=== PATIENT | female | born 1965 | race Caucasian/White ===

== ENCOUNTER 2018-06-10 17:36 | Emergency (ER) | payer OTHER ==
[2018-06-10 18:35] VITALS: BP 119/65
--- NOTE | 2018-06-10 19:49 | UC ---
Upper Extremity HPI - HPI Summary HPI Summary: 52-year-old female presents with complaints of redness, swelling and tenderness to her proximal nail fold of the right middle finger which started last night. Reports she had a similar incident a couple of years ago that ultimately required debridement and removal of the nail. Denies known injury, fever, chills, drainage, numbness or tingling. - History of Current Complaint Chief Complaint: UCUpperExtremity Stated Complaint: RIGHT HAND MIDDLE FINGER COMPLAINT Time Seen by Provider: 06/10/18 19:44 Hx Obtained From: Patient Hx Last Menstrual Period: none Pain Intensity: 0 - Allergies/Home Medications Allergies/Adverse Reactions: Allergies Allergy/AdvReac Type Severity Reaction Status Date / Time erythromycin base AdvReac Nausea Verified 06/10/18 18:35 Home Medications: Home Medications Cyclobenzaprine TAB* [Flexeril 10 MG TAB*] 10 mg PO TID PRN 06/10/18 [History Confirmed 06/10/18] Escitalopram (NF) [Lexapro 20 mg (NF)] 1 tab DAILY 06/10/18 [History Confirmed 06/10/18] PMH/Surg Hx/FS Hx/Imm Hx Endocrine History: Dyslipidemia GI/ History: Gastroesophageal Reflux Psychological History: Depression Other History Of: Negative For: HIV, Hepatitis B, Hepatitis C, Anticoagulant Therapy - Surgical History Surgical History: Yes Surgery Procedure, Year, and Place: Left Foot Bunion, left femur fxs 2003, rods are in place. Right Foot Bunion. Bone fusion and reconstruction of the right heel - Family History Known Family History: Positive: Hypertension Negative: Cardiac Disease - Social History Occupation: Employed Part-time Lives: With Family Alcohol Use: Rare Substance Use Type: None Substance Use Comment - Amount & Last Used: 5 cups of coffee daily Smoking Status (MU): Heavy Every Day Tobacco Smoker Type: Cigarettes Amount Used/How Often: 3/4 ppd Length of Time of Smoking/Using Tobacco: ~ 30 years Review of Systems All Other Systems Reviewed And Are Negative: Yes Constitutional: Negative: Fever, Chills Skin: Positive: Other - See HPI Respiratory: Positive: Negative Cardiovascular: Positive: Negative Gastrointestinal: Positive: Negative Genitourinary: Positive: Negative Musculoskeletal: Positive: Negative Neurological: Positive: Negative Is Patient Immunocompromised?: No Physical Exam - Summary Physical Exam Summary: GENERAL APPEARANCE: Well developed, well nourished, alert and cooperative, and appears to be in no acute distress. CARDIAC: Normal S1 and S2. No S3, S4 or murmurs. Rhythm is regular. There is no peripheral edema, cyanosis or pallor. Extremities are warm and well perfused. Capillary refill is less than 2 seconds. LUNGS: Clear to auscultation without rales, rhonchi, wheezing or diminished breath sounds. ABDOMEN: Positive bowel sounds. Soft, nondistended, nontender. No guarding or rebound. No masses or hepatosplenomegally. MUSKULOSKELETAL: ROM intact to all extremities. No joint erythema or tenderness. Normal muscular development. Normal gait. NEUROLOGICAL: Strength and sensation symmetric and intact. SKIN: Erythema, tenderness, mild edema and induration without fluctuance or drainage to the proximal nail fold of the right middle finger. No joint tenderness or decrease in ROM. Triage Information Reviewed: Yes Vital Signs: Initial Vital Signs Temp 97.4 F 06/10/18 18:26 Pulse 68 06/10/18 18:26 Resp 16 06/10/18 18:26 BP 119/65 06/10/18 18:26 Pulse Ox 99 06/10/18 18:26 Vital Signs Reviewed: Yes Upper Extremity Course/Dx - Course Course Of Treatment: 52-year-old female presents with complaints of redness, swelling and tenderness to her proximal nail fold of the right middle finger which started last night. Reports she had a similar incident a couple of years ago that ultimately required debridement and removal of the nail. Denies known injury, fever, chills, drainage, numbness or tingling. Afebrile. Vital signs stable. Exam reveals erythema, tenderness, mild edema and induration without fluctuance or drainage to the proximal nail fold of the right middle finger. We 'll start patient on Bactrim DS twice a day 7 days for paronychia versus cellulitis of the finger. She is to follow-up with her primary care provider or return here within 3 days if symptoms do not improve. Also recommend that she does soaks and warm water and Epsom salt solution 2-4 times a day. Anticipatory guidance and warning symptoms were reviewed with the patient. Verbalized understanding and agrees with plan of care. - Differential Dx/Diagnosis Provider Diagnosis: Paronychia of right middle finger Discharge - Sign-Out/Discharge Documenting (check all that apply): Patient Departure All imaging exams completed and their final reports reviewed: No Studies - Discharge Plan Condition: Stable Disposition: HOME Prescriptions: Sulfamethox/Trimethoprim DS* [Bactrim DS 800/160 TAB*] 1 tab PO BID #14 tab Patient Education Materials: Paronychia (ED) Referrals: Ajay Hopkins PA [Primary Care Provider] - 3 Days (If no improvement.) Additional Instructions: Soak your finger in a warm water and Epsom salt solution 3-4 times a day. Take Bactrim DS 1 tab every twice a day for 7 days. We gave you the first dose in the clinic. Return here or with your primary care provider in 3 days if no improvement in symptoms. Seek immediate medical attention in the emergency room if you develop fever greater than 100.5 F, you have pain that is not managed with over the counter pain medication, increased redness or swelling of the finger, you have numbness or tingling in the finger, or any worsening of symptoms. - Billing Disposition and Condition Condition: STABLE Disposition: Home - Attestation Statements Provider Attestation: Per institutional requirements, I have reviewed the chart, however, I was not consulted specifically or made aware of this patient by the midlevel provider. I did not personally evaluate, interact with , or disposition this patient.
[2018-06-10] MEDS ORDERED: Sulfamethox/Trimethoprim DS 800/160* TAB PO ONE (19:53)
== END 2018-06-10 20:04 | disposition home or self-care (01) ==
LOC: UCCORT 17:36
DX: L03.011 Cellulitis of right finger (principal); F17.210 Nicotine dependence, cigarettes, uncomplicated; F32.9 Major depressive disorder, single episode, unspecified; Z88.1 Allergy status to other antibiotic agents; Z79.899 Other long term (current) drug therapy
CPT/HCPCS: 99212; A9270-GY; G0463

== ENCOUNTER 2018-08-28 10:11 | Emergency (ER) | payer OTHER ==
[2018-08-28 10:48] VITALS: BP 118/69
--- NOTE | 2018-08-28 11:02 | UC ---
Lower Extremity/Ankle HPI - HPI Summary HPI Summary: 52-year-old female presents with complaints of 2 day history of pain and swelling to her posterior upper leg, knee, and calf. States she's had a several month history of bilateral knee and ankle pain that sounds very arthritic in nature but her current pain is different and more persistent. No recent surgery, confinement, or history of cancer. Denies injury, chest pain, shortness of breath, erythema or lower extremity edema. - History of Current Complaint Chief Complaint: UCLowerExtremity Stated Complaint: BILATERAL KNEE/ANKLE CONCERN Time Seen by Provider: 08/28/18 10:51 Hx Obtained From: Patient Hx Last Menstrual Period: none Pain Intensity: 5 - Allergies/Home Medications Allergies/Adverse Reactions: Allergies Allergy/AdvReac Type Severity Reaction Status Date / Time erythromycin base AdvReac Nausea Verified 08/28/18 10:43 Home Medications: Home Medications Gabapentin CAP(*) [Neurontin 300 CAP(*)] 300 mg PO TID 08/28/18 [History Confirmed 08/28/18] PMH/Surg Hx/FS Hx/Imm Hx Endocrine History: Dyslipidemia GI/ History: Gastroesophageal Reflux Other History Of: Negative For: HIV, Hepatitis B, Hepatitis C, Anticoagulant Therapy - Surgical History Surgical History: Yes Surgery Procedure, Year, and Place: Left Foot Bunion, left femur fxs 2003, rods are in place. Right Foot Bunion. Bone fusion and reconstruction of the right heel - Family History Known Family History: Positive: Hypertension Negative: Cardiac Disease - Social History Occupation: Employed Part-time Lives: With Family Alcohol Use: Rare Substance Use Type: None Substance Use Comment - Amount & Last Used: 5 cups of coffee daily Smoking Status (MU): Heavy Every Day Tobacco Smoker Type: Cigarettes Amount Used/How Often: 3/4 ppd Length of Time of Smoking/Using Tobacco: ~ 30 years Review of Systems All Other Systems Reviewed And Are Negative: Yes Constitutional: Negative: Fever, Chills Skin: Negative: Rash, Bruising Respiratory: Negative: Shortness Of Breath, Cough Cardiovascular: Negative: Palpitations, Chest Pain Gastrointestinal: Positive: Negative Genitourinary: Positive: Negative Motor: Negative: Weakness Neurovascular: Negative: Decreased Sensation Musculoskeletal: Positive: Other: - See HPI Neurological: Positive: Negative Is Patient Immunocompromised?: No Physical Exam - Summary Physical Exam Summary: GENERAL APPEARANCE: Well developed, well nourished, alert and cooperative, and appears to be in no acute distress. CARDIAC: Normal S1 and S2. No S3, S4 or murmurs. Rhythm is regular. There is no peripheral edema, cyanosis or pallor. Extremities are warm and well perfused. Capillary refill is less than 2 seconds. LUNGS: Clear to auscultation without rales, rhonchi, wheezing or diminished breath sounds. ABDOMEN: Positive bowel sounds. Soft, nondistended, nontender. No guarding or rebound. No masses or hepatosplenomegally. MUSKULOSKELETAL: Normal muscular development. Limping gait. EXTREMITIES: Mild tenderness to the lateral and medial aspect of the knee joint without erythema, ecchymosis, or swelling. Full passive range of motion. No crepitus noted. Multiple superficial varicosities are noted to the bilateral lower extremities. Right calf soft and supple although patient does report tenderness to the posterior calf, posterior knee, and posterior distal upper leg. No lower extremity edema is noted. 2+ pedal pulses. Sensation intact. SKIN: Skin normal color, texture and turgor with no lesions or eruptions. Triage Information Reviewed: Yes Vital Signs: Initial Vital Signs Temp 97.4 F 08/28/18 10:40 Pulse 67 08/28/18 10:40 Resp 18 08/28/18 10:40 BP 118/69 08/28/18 10:40 Pulse Ox 99 08/28/18 10:40 Vital Signs Reviewed: Yes Diagnostics - Radiology No standard instances Radiology Interpretation Completed By: Radiologist Summary of Radiographic Findings: Order Information: VL LOWER EXT VEINS RIGHT. Accession Number: [id number]. CPT: 77435. HISTORY: pain posterior upper leg and calf. COMPARISONS: None relevant. TECHNIQUE: Multiple transverse and longitudinal ultrasound images were obtained of the. right lower extremity from the level of the common femoral vein inferiorly through to the infrapopliteal veins using grayscale, color Doppler, and spectral Doppler imaging with and without compression and with augmentation. Comparison images were obtained of the contralateral common femoral vein. FINDINGS: VEINS: The venous system of the right lower extremity is compressible throughout its course , with normal flow on color Doppler imaging and normal response to augmentation on spectral Doppler imaging. SOFT TISSUES: Unremarkable. OTHER FINDINGS: There is a 2.5 x 1 x 1.7 cm popliteal fossa fluid collection. IMPRESSION: NO RIGHT LOWER EXTREMITY DEEP VEIN THROMBOSIS. WATKINS'S CYST Lower Extremity Course/Dx - Course Course Of Treatment: 52-year-old female presents with complaints of 2 day history of pain and swelling to her posterior upper leg, knee, and calf. States she's had a several month history of bilateral knee and ankle pain that sounds very arthritic in nature but her current pain is different and more persistent. No recent surgery, confinement, or history of cancer. Denies injury, chest pain, shortness of breath, erythema or lower extremity edema. Afebrile. Vital signs stable. Exam is remarkable for mild tenderness to the lateral and medial aspect of the knee joint without erythema, ecchymosis, or swelling. Full passive range of motion. No crepitus noted. Multiple superficial varicosities are noted to the bilateral lower extremities. Right calf soft and supple although patient does report tenderness to the posterior calf, posterior knee, and posterior distal upper leg. No lower extremity edema is noted. 2+ pedal pulses. Sensation intact. Patient has a Wells DVT score of 1 which places her at moderate risk for DVT therefore an ultrasound of the right lower extremity was obtained which showed a 2.5 x 1 x 1.7 cm popliteal fossa fluid collection likely representing a Watkins's cyst but no DVT. Recommending conservative treatment for the Watkins cyst including NSAIDs and RICE. She is to follow up with her primary care provider in 5 days. Anticipatory guidance and warning symptoms reviewed with patient. Verbalizes understanding and agrees with POC. - Differential Dx/Diagnosis Differential Diagnosis/HQI/PQRI: Arthritis, DVT, Gout Provider Diagnosis: Right knee pain, Waktins's cyst of knee Discharge - Sign-Out/Discharge Documenting (check all that apply): Patient Departure All imaging exams completed and their final reports reviewed: Yes - Discharge Plan Condition: Stable Disposition: HOME Patient Education Materials: Bakers Cyst (ED), Arthralgia (ED) Referrals: Ajay Hopkins PA [Primary Care Provider] - 5 Days Additional Instructions: The ultrasound performed in the clinic today showed no evidence of a blood clot in the leg however there was a collection of fluid noted behind the right knee that is consistent with a Watkins's cyst. Rest the leg as much as possible. You may continue to walk and bear weight as tolerated. Apply ice to the knee for 15-20 minutes at least 4 times a day to help reduce pain and swelling. Be sure to keep the leg elevated sitting to help reduce any swelling. You may use your ibuprofen as directed as needed for pain. Follow-up with your primary care provider in 5 days if symptoms persist. Seek immediate medical attention in the emergency room if you develop severe pain that is not managed with pain medication, have worsening swelling of the leg, develop chest pain, shortness of breath, or any worsening of symptoms. - Billing Disposition and Condition Condition: STABLE Disposition: Home - Attestation Statements Provider Attestation: I was available for consult. This patient was seen by the LUCERO. The patient was not presented to, seen by, or examined by me. -Jono
== END 2018-08-28 12:15 | disposition home or self-care (01) ==
LOC: UCCORT 10:11
DX: M25.561 Pain in right knee (principal); M71.21 Synovial cyst of popliteal space [Baker], right knee; I83.93 Asymptomatic varicose veins of bilateral lower extremities; M79.89 Other specified soft tissue disorders; E78.5 Hyperlipidemia, unspecified; K21.9 Gastro-esophageal reflux disease without esophagitis; Z88.1 Allergy status to other antibiotic agents; F17.210 Nicotine dependence, cigarettes, uncomplicated
CPT/HCPCS: 99211; G0463

== ENCOUNTER 2018-12-21 12:46 | Emergency (ER) | payer SELFPAY ==
[2018-12-21 13:08] VITALS: BP 117/75
--- NOTE | 2018-12-21 13:21 | UC ---
Knee Pain HPI - HPI Summary HPI Summary: Right knee swollen, was diagnosed 08/28/18 with a Watkins's cyst. Patient saw Dr. Kirk at [facility] after visit here, was prescribed diclofenac ER 100mg without improvement of symptoms. She sas an ortho appointment tomorrow however, states her insurance has lapsed and she is not certain they will see her. States the pain and swelling has worsened within the "last couple weeks". Denies calf pain nor tenderness, no edema of lower leg. - History of Current Complaint Chief Complaint: UCLowerExtremity Stated Complaint: RT KNEE COMPLAINT Time Seen by Provider: 12/21/18 13:08 Hx Obtained From: Patient Hx Last Menstrual Period: none Onset/Duration: Lasting Weeks - swelling shifted from posterior knee to anterior knee. Pain Intensity: 10 Aggravating Factor(s): Movement, Weight Bearing, Prolonged Standing Alleviating Factor(s): Nothing Able to Bear Weight: Yes Related History: Similar Episode/Dx as - previously diagnosed Watkins's cyst right knee. - Risk Factors Septic Arthritis Risk Factor: Negative, Endocarditis - Allergies/Home Medications Allergies/Adverse Reactions: Allergies Allergy/AdvReac Type Severity Reaction Status Date / Time erythromycin base AdvReac Nausea Verified 12/21/18 13:04 Home Medications: Home Medications Vitamin THERAPEUTIC TAB* [Theragran TAB*] 1 tab PO DAILY 12/21/18 [History Confirmed 12/21/18] PMH/Surg Hx/FS Hx/Imm Hx Previously Healthy: Yes GI/ History: Gastroesophageal Reflux Psychological History: Depression Other History Of: Negative For: HIV, Hepatitis B, Hepatitis C, Anticoagulant Therapy - Surgical History Surgical History: Yes Surgery Procedure, Year, and Place: Left Foot Bunion, left femur fxs 2003, rods are in place. Right Foot Bunion. Bone fusion and reconstruction of the right heel - Family History Known Family History: Positive: Hypertension Negative: Cardiac Disease - Social History Alcohol Use: Rare Substance Use Type: None Substance Use Comment - Amount & Last Used: 5 cups of coffee daily Smoking Status (MU): Heavy Every Day Tobacco Smoker Type: Cigarettes Amount Used/How Often: 3/4 PPD Length of Time of Smoking/Using Tobacco: Since Age 16 Household Exposure Type: Cigarettes Review of Systems All Other Systems Reviewed And Are Negative: Yes Constitutional: Positive: Negative Skin: Positive: Negative Eyes: Positive: Negative ENT: Positive: Negative Respiratory: Positive: Negative Cardiovascular: Positive: Negative Gastrointestinal: Positive: Negative Genitourinary: Positive: Negative Motor: Positive: Decreased ROM - right knee due to pain/swelling. Negative: Weakness Neurovascular: Positive: Negative Musculoskeletal: Negative: Edema Neurological: Negative: Headache, Weakness, Paresthesia, Numbness Psychological: Positive: Depressed - controlled with current medications. Is Patient Immunocompromised?: No Physical Exam Triage Information Reviewed: Yes Appearance: Well-Appearing, No Pain Distress Vital Signs: Initial Vital Signs Temp 98.6 F 12/21/18 12:59 Pulse 76 12/21/18 12:59 Resp 18 12/21/18 12:59 BP 117/75 12/21/18 12:59 Pulse Ox 98 12/21/18 12:59 Vital Signs Reviewed: Yes Eye Exam: Normal ENT Exam: Normal Neck: Positive: Supple, Nontender, No Lymphadenopathy Respiratory: Positive: Chest non-tender, Lungs clear Cardiovascular: Positive: RRR, No Murmur Abdomen Description: Positive: Nontender, Soft Musculoskeletal: Positive: Strength Intact, ROM Limited @ - secondary to stiffness., Other: - mild effusion noted upper outer portion of knee. No further Watkins's cyst palpable.. Negative: Strength Limited @, Edema @ Neurological: Positive: Alert Psychological Exam: Normal Skin Exam: Normal Knee Pain Course/Dx - Differential Dx/Diagnosis Differential Diagnosis/HQI/PQRI: Tendonitis Provider Diagnosis: Osteoarthritis of right knee Discharge - Sign-Out/Discharge Documenting (check all that apply): Patient Departure All imaging exams completed and their final reports reviewed: No Studies - Discharge Plan Condition: Stable Disposition: HOME Prescriptions: Naproxen [Naproxen 500 mg tab] 500 mg PO BID PRN #30 tablet.dr CARBAJAL Reason: Pain - Moderate Patient Education Materials: Osteoarthritis (ED) Referrals: Ajay Hopkins PA [Primary Care Provider] - Additional Instructions: Discontinue your diclofenac and start naproxen per instructions instead. Stop using left knee brace that was too large, apply CHARO wrap as discussed instead. Apply ice to right knee up to three times/day for pain/swelling. Follow-up with your orthopedic physician. - Billing Disposition and Condition Condition: STABLE Disposition: Home
== END 2018-12-21 14:34 | disposition home or self-care (01) ==
LOC: UCCORT 12:46
DX: M17.11 Unilateral primary osteoarthritis, right knee (principal); F17.210 Nicotine dependence, cigarettes, uncomplicated
CPT/HCPCS: 99212; G0463